=== PATIENT | female | born 1945 | race Caucasian/White ===

== ENCOUNTER 2024-02-07 | Outpatient (CLI) | payer MEDICARE | END 2024-02-07 11:39 | disposition home or self-care (01) | DX: Z12.31 Encounter for screening mammogram for malignant neoplasm of breast (principal); Z80.3 Family history of malignant neoplasm of breast ==

== ENCOUNTER 2024-04-13 10:02 | Outpatient (CLI) | payer MEDICARE | END 2024-04-13 10:03 | disposition home or self-care (01) | LOC: BICMAMMO 10:02 | PROVIDERS: ATTEND Family Medicine | DX: Z13.820 Encounter for screening for osteoporosis (principal) | CPT/HCPCS: 77080 ==